=== PATIENT | female | born 2005 | race Two or more races ===

== ENCOUNTER 2024-01-02 14:30 | Emergency (ER) | payer SELFPAY ==
[2024-01-02] MEDS ORDERED: Ibuprofen 200 MG TAB ONE (15:27)
== END 2024-01-02 15:54 | disposition home or self-care (01) ==
LOC: CSHERS 14:30
DX: S80.12XA Contusion of left lower leg, initial encounter (principal); V89.2XXA Person injured in unspecified motor-vehicle accident, traffic, initial encounter